=== PATIENT | male | born 1990 | race African-American/Black ===

== ENCOUNTER 2018-01-07 15:10 | Emergency (ER) | payer OTHER ==
[~2018-01-07] VITALS: Ht 167.6 cm; Wt 69.8 kg
--- NOTE | ~2018-01-07 | EKG ---
[address] [place] [address] ELECTROCARDIOGRAM REPORT Name: SCOTTMARCEL Carrol [facility] [id number] Admission: 01/07/18 Attend Phys: Discharge: 01/07/18 Date of : 89 Report #: [id number] THIS REPORT FOR: //name// [facility] ED Test Date: 2018-01-07 Test Time: 15:13:01 Pat Name: MARCEL CHAVEZ Department: Room: Gender: [employer] Driver: : 1990 Requested By: Ken Murillo Order Number: [id number] MD: Karthikeyan Riley Measurements Intervals [place] Rate: 80 P: 79 AK: 130 QRS: 66 QRSD: 77 T: 17 QT: 331 QTc: 382 Interpretive Statements Sinus rhythm Baseline wander in lead(s) V1,V4 No previous ECG available for comparison Electronically Signed On 01-08-2018 7:39:32 CDT by Karthikeyan Riley [email or web address] <ELECTRONICALLY SIGNED> By: Karthikeyan Riley MD, [facility] 01/08/18 0739 [id number] 1513 Karthikeyan Riley MD, FACC /EPI
[~2018-01-07 15:10] MED LIST: NOHOMEMEDICATIONS
[2018-01-07 15:37] LABS: ABSOLUTE NEUTROPHILS 3.7 thou/uL (1.4-8.2); BASOPHILS 0.5 % (0.0-2.0); EOSINOPHILS 0.7 % (0.0-3.0); HEMATOCRIT 47.4 % (42.0-52.0); HEMOGLOBIN 15.9 gm/dL (14.0-18.0); LYMPHOCYTES 22.8 % (24.0-44.0); MCH 29.9 pg (26.0-34.0); MCHC 33.5 g/dL (28.0-37.0); MCV 89.3 fL (80.0-100.0); MONOCYTES 8.9 % (1.0-8.0); PLATELET COUNT 243 thou/uL (150-400); POLYS 67.1 % (36.0-66.0); RBC 5.31 mil/uL (4.50-6.00); RDW 13.7 % (10.5-14.5); WBC 5.5 thou/uL (4.0-11.0)
[2018-01-07 15:42] LABS: ANION GAP 8 mmol/L (7-16); BUN 15 mg/dL (7-18); CALCIUM 9.6 mg/dL (8.5-10.1); CHLORIDE 105 mmol/L (98-107); CO2 29 mmol/L (21-32); CREATININE 1.2 mg/dL (0.7-1.3); GLUCOSE 94 mg/dL (74-106); POTASSIUM 4.2 mmol/L (3.5-5.1); SODIUM 142 mmol/L (136-145)
[2018-01-07 15:50] LABS: TROPONIN-I < 0.04 ng/mL (<0.06)
== END 2018-01-07 16:16 | disposition home or self-care (01) ==
LOC: ER 15:10
PROVIDERS: Physician Assistant
DX: R07.89 Other chest pain (principal)

== ENCOUNTER 2018-10-29 12:16 | Emergency (ER) | payer OTHER ==
[~2018-10-29] VITALS: Ht 167.6 cm; Wt 69.8 kg
[2018-10-29] MEDS ORDERED: PEPCID40 MG PO (13:04)
[2018-10-29] MEDS ORDERED: MEDROLDOSEPACK PO (13:04)
[2018-10-29 13:18] VITALS: BP 117/73
== END 2018-10-29 13:19 | disposition home or self-care (01) ==
LOC: ER 12:16
DX: T78.40XA Allergy, unspecified, initial encounter (principal); L50.9 Urticaria, unspecified